=== PATIENT | female | born 1995 | race Two or more races ===

== ENCOUNTER 2017-03-23 11:25 | Emergency (ER) | payer OTHER ==
[~2017-03-23] VITALS: Ht 162.6 cm; Wt 99.8 kg
[2017-03-23 12:41] LABS: HEMATOCRIT 42.3 % (36.0-46.0); MCH 28.4 PG (29.0-34.0); MCHC 32.9 G/DL (30.0-36.0); MCV 86.5 FL (83-99); MEAN PLAT.VOLUME 9.2 uM^3 (9.5-12.4); PLATELET COUNT 334 K/uL (156-360); RBC DIS.WIDTH-CV 12.3 % (11.8-14.6); RBC DIS.WIDTH-SD 38.8 % (39-53); RED BLOOD COUNT 4.89 M/uL (3.80-5.20); WHITE BLOOD COUNT 7.1 K/uL (4.1-10.2)
[2017-03-23 12:50] LABS: CHLORIDE 106 mEq/L (99-109); POTASSIUM 4.6 mEq/L (3.7-5.4); SODIUM 138 mEq/L (136-147)
[2017-03-23 12:52] LABS: GLUCOSE 79 mg/dL (70-99)
[2017-03-23 12:53] LABS: ANION GAP 8 MEQ/L (2-14)
[2017-03-23 12:54] LABS: TOTAL BILIRUBIN 0.5 mg/dL (0.0-1.0)
[2017-03-23 12:56] LABS: ALKALINE PHOSPHATASE 61 IU/L (3-129)
[2017-03-23 12:57] LABS: UREA NITROGEN (BUN) 6 mg/dL (9-23)
[2017-03-23 12:58] LABS: GFR ESTIMATE (CALCULATED) > 59 mL/min/
[2017-03-23 13:06] LABS: QUANTITATIVE HCG < 4.0 MIU/ML
[2017-03-23 13:28] LABS: ADD MIUA? YES; BILIRUBIN NEGATIVE; BLOOD NEGATIVE; COLOR YELLOW ((YELLOW)); GLUCOSE (STRIP) NEGATIVE; KETONES NEGATIVE; LEUKOCYTES SMALL; NITRITE NEGATIVE; PROTEIN (STRIP) NEGATIVE; SPECIFIC GRAVITY 1.014 (1.000-1.030); UROBILINOGEN 0.2 MG/DL (0.2-1.0)
[2017-03-23 13:29] LABS: BACTERIA RARE /HPF; EPITHELIAL CELLS 1+ /HPF; MUCUS TRACE /LPF; RED BLOOD CELLS 0-5 /HPF (0-5); UCUL ADDED? NO; WHITE BLOOD CELLS 0-5 /HPF (0-5)
[2017-03-23 13:41] LABS: LIPASE 18 U/L (1.0-51.0)
[2017-03-23] MEDS ORDERED: BENTYL10 MG PO (15:41)
[2017-03-23 16:01] VITALS: BP 132/91
== END 2017-03-23 16:02 | disposition home or self-care (01) ==
LOC: EME 11:25
DX: R10.30 Lower abdominal pain, unspecified (principal)
CPT/HCPCS: 74176; 80053; 81003; 83690; 84702; 85027; 99281; 99284; J1885